=== PATIENT | female | born 1990 | race Caucasian/White ===

== ENCOUNTER 2016-02-17 22:28 | Emergency (ER) | payer OTHER ==
--- NOTE | 2016-02-17 23:31 | ED NURSING NOTES ---
Clinical Report - Nurses [facility] [address] [place] [address] 02/17/2016 22:29 [id number] TRI[facility] Triage time 23:05. Acuity: LEVEL 4. Chief Complaint: INJURY TO LEFT FOOT. 23:10. Alert. SEPSIS SCREEN: Sepsis Screen. Negative (no infection suspected/documented). LANNY COMA SCORE: Lanny Coma Scale: 15- eyes open spontaneously (4); best verbal response- oriented x 4 (5); best motor response- obeys commands (6). --23:10 Danilo Rodas R.N. 23:05 02/17/16. BP: 126/74. HR: 104. RR: 17. O2 saturation: 98%. Temp: 98.1 F (oral). Pain level now: 11/18. --23:10 Danilo Rodas R.N. Weight: 132.4 kg stated. Height/Length: 62 inches Per Patient. BMI: 53.4. --23:10 Danilo Rodas R.N. Medications Gabapentin Oral 300 mg, daily. --23:07 Danilo Rodas R.N. Medication/allergy information source: the patient. --23:10 Danilo Rodas R.N. Allergies Imitrex. Definite Moderate(rash) (Makes her head "feel tight") Penicillin. Definite Moderate(rash) (Makes her skin crack and bleed) --23:07 Danilo Rodas R.N. History Arrived by private vehicle. Historian: patient. Accompanied by friend. Primary physician (Tiffany). This occurred last night (about 1930). Occurred at home. ( Denies other injury). No neck pain or back pain. 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 PAST MEDICAL HX: Tetanus status: up-to-date. Immunizations: up-to-date. Last normal menstrual period- May 2015, Nexplanon. SOCIAL HX: Current every day heavy tobacco smoker- less than 1 pack per day. No alcohol use or drug use. No infectious disease exposure. ABUSE ASSESSMENT: No report of abuse. FALL RISK ASSESSMENT: Fall risk assessment completed. No fall risk identified. NUTRITIONAL RISK ASSESSMENT: The nutritional risk assessment revealed no deficiencies. FUNCTIONAL ASSESSMENT: Functional assessment: no impairments noted. LEARNING NEEDS ASSESSMENT: The learning needs assessment revealed no barriers. SKIN INTEGRITY ASSESSMENT: Skin integrity risk assessment completed. No skin integrity risk identified. --23:10 Danilo Rodas R.N. ( Patient reports slipping on ice, fell down about 8 steps and left foot bent under her). --23:11 Danilo Rodas R.N. PROBLEMS: Back Pain. Lumbar Strain. UTI - Urinary Tract Infection. --23:08 Danilo Rodas R.N. ADDITIONAL SURGERIES: Gallbladder Surgery. Tonsillectomy. --23:08 Danilo Rodas R.N. Interventions ID band on patient. To treatment room. --23:10 Danilo Rodas R.N. PHYSICAL ASSESSMENT 23:11. Ambulatory to room. GENERAL / NEURO / PSYCH: Oriented X 4. Alert. EXTREMITIES: Neuro-vascular status intact to the extremity. SKIN: Skin intact. Skin is warm and dry. --23:11 Danilo Rodas R.N. NURSING PROGRESS NOTES 23:11. Two patient identifiers checked. Call light placed in reach. Bed placed in lowest position. Brakes of bed on. Patient ready for evaluation- chart flagged. --23:11 Danilo Rodas R.N. 23:16 Portable x-ray left foot. --23:17 Danilo Rodas R.N. 23:43. The patient is calm and resting quietly. GENERAL / NEURO / PSYCH: Alert. Oriented X 4. RESPIRATORY: No respiratory distress. SKIN: Skin is warm and dry. --23:43 Danilo Rodas R.N. Ortho shoe applied to right foot by tech; distal pulses intact, sensation intact and motor function within normal limits. Patient fit with new crutches. Crutch training performed by Plasticell; the patient demonstrated proper use. --23:50 Florentin Neville 23:45 02/17/2016 Zofran ODT (Ondansetron) PO 4 mg given. Allergies verified and confirmed 5 rights. --23:51 Danilo Rodas R.N. 23:45 02/17/2016 Ibuprofen PO 600 mg given. Allergies verified and confirmed 5 rights. --23:52 Danilo Rodas R.N. DISPOSITION / DISCHARGE Condition at departure: stable. No learning barriers present. Discharge instructions provided and reviewed with the patient. Reviewed medication(s) side effects, precautions, dosing and course information. Prescription(s) given to the patient. Patient verbalized understanding. Written instructions provided in Ukrainian. The patient was discharged home and accompanied by poultry scientist. She left the Emergency Department ambulatory and via private vehicle. Full Roll Inspector driving. FALL RISK ASSESSMENT: Fall risk assessment completed. No fall risk identified. --23:43 Danilo Rodas R.N. 23:41 02/17/16. BP: 109/75. HR: 91. RR: 17. O2 saturation: 96% on room air. Pain level now: 07/19. --23:43 Danilo Rodas R.N. Departure time: 23:52. --23:47 Danilo Rodas R.N. Locked/Released at 02/17/2016 23:55 by Danilo Rodas R.N.
--- NOTE | 2016-02-17 23:31 | ED CLINICAL REPORT ---
Clinical Report - Physicians/Mid Levels [facility] [address] [place] [place] [address] 02/17/2016 22:29 Patient: JANELL WATTS Time Seen: 23:11. Arrived- By private vehicle. Historian- patient. HISTORY OF PRESENT ILLNESS Chief Complaint: Injury to the left foot. The injury happened last night about 29 hours ago. Occurred at home. Fell while walking; slipped (Patient reports slipping on ice, fell down about 8 steps and left foot bent under her). Patient is experiencing moderate pain. Patient denies injury to the head or neck. No other injury. REVIEW OF SYSTEMS The patient complains of pain on weight bearing. She has had swelling. No tingling, weakness, numbness, suspected foreign body or skin laceration. All systems otherwise negative, except as recorded above. PAST HISTORY Primary physician (Tiffany) PROBLEMS: Back Pain. Lumbar Strain. UTI - Urinary Tract Infection. Obesity. SURGERIES: Gallbladder Surgery. Tonsillectomy. Medications: Gabapentin Oral 300 mg, daily. Allergies: Imitrex. Definite Moderate(rash) (Makes her head "feel tight") Penicillin. Definite Moderate(rash) (Makes her skin crack and bleed). SOCIAL HISTORY Smoker- current status unknown. No alcohol use or drug use. ADDITIONAL NOTES The nursing notes have been reviewed. PHYSICAL EXAM Vital Signs: 02/17/2016 23:05 BP: 126/74. HR: 104. RR: 17. O2 saturation: 98%. Temp: 98.1 F. Pain level now: 11/18. Appearance: Alert. Oriented X3. Patient in mild distress. Head: Head atraumatic. Eyes: Eyes normal inspection. No scleral icterus or pale conjunctivae. ENT: Nose normal. Neck: Normal inspection. Neck supple. C-spine non-tender. CVS: Normal heart rate and rhythm. Heart sounds normal. Pulses normal. Respiratory: No respiratory distress. Breath sounds normal. Chest nontender. Abdomen: No visible injury. Soft and nontender. Severely obese. Back: Normal inspection. No tenderness. No vertebral point tenderness. Skin: Skin intact. Skin warm and dry. Extremities: Right knee. No tenderness or swelling. Right ankle. No tenderness or swelling. Right foot: moderate tenderness and mild swelling located in the dorsal and plantar lateral aspect of the mid foot. Neurovascular intact distally. No erythema, laceration, abrasion, ecchymosis or puncture wound. No foreign body or deformity. No ankle injury. Foot and ankle exam otherwise negative. Extremities otherwise negative. Neuro, Vascular and Tendons: Vascular status intact. Sensation intact. Motor intact. Tendon function intact. Gait: Limping gait. Neuro: Oriented X 3. No motor deficit. No sensory deficit. LABS, X-RAYS, AND EKG Lt Foot X-ray: No fracture. Normal alignment. No bony lesion or air in the soft tissue. Soft tissues normal. Joint spaces normal. Views: AP, lateral and oblique. Technique: good. The X-rays were interpreted contemporaneously by me. PROGRESS AND PROCEDURES Course of Care: Ibuprofen 600 mg PO given. Zofran 4 mg ODT PO given. No evident fx now. Patient/family counseled. Old ED records reviewed. Disposition: Discharged. Condition: stable and improved. CLINICAL IMPRESSION Sprain of the tarsometatarsal ligaments of the left foot. Morbid obesity (BMI >=40) due to excess calories. Fall on same level by slipping. INSTRUCTIONS Apply ice. Use crutches until better. Elevate affected areas above chest level. Wear stiff soled shoe until released. No weight bearing left leg for three days. Warnings: GENERAL WARNINGS: Return or contact your physician immediately if your condition worsens or changes unexpectedly, if not improving as expected, or if other problems arise. Prescription Medications: Ibuprofen 600mg tablets: take 1 tablet orally every 8 hours as needed for pain. Dispense thirty (30). No refills. OTC Medications: Acetaminophen (available over the counter): take according to label instructions. Motrin (available over the counter): take according to label instructions. Follow-up: Follow up with your doctor in about three days. Follow-up with: Desmond Seals DPM, Podiatry, , [address], [place], [address] Follow up in about three days. (Electronically signed by Pawan Moreno DO 02/18/2016 5:36)
--- NOTE | 2016-02-17 23:31 | ED CLINICAL REPORT ---
Clinical Report - Physicians/Mid Levels [facility] [address] [place] [address] 02/17/2016 22:29 Patient: JANELL WATTS Time Seen: 23:11. Arrived- By private vehicle. Historian- patient. HISTORY OF PRESENT ILLNESS Chief Complaint: Injury to the left foot. The injury happened last night about 29 hours ago. Occurred at home. Fell while walking; slipped (Patient reports slipping on ice, fell down about 8 steps and left foot bent under her). Patient is experiencing moderate pain. Patient denies injury to the head or neck. No other injury. REVIEW OF SYSTEMS The patient complains of pain on weight bearing. She has had swelling. No tingling, weakness, numbness, suspected foreign body or skin laceration. All systems otherwise negative, except as recorded above. PAST HISTORY Primary physician (Tiffany) PROBLEMS: Back Pain. Lumbar Strain. UTI - Urinary Tract Infection. Obesity. SURGERIES: Gallbladder Surgery. Tonsillectomy. Medications: Gabapentin Oral 300 mg, daily. Allergies: Imitrex. Definite Moderate(rash) (Makes her head "feel tight") Penicillin. Definite Moderate(rash) (Makes her skin crack and bleed). SOCIAL HISTORY Smoker- current status unknown. No alcohol use or drug use. ADDITIONAL NOTES The nursing notes have been reviewed. PHYSICAL EXAM Vital Signs: 02/17/2016 23:05 BP: 126/74. HR: 104. RR: 17. O2 saturation: 98%. Temp: 98.1 F. Pain level now: 11/18. Appearance: Alert. Oriented X3. Patient in mild distress. Head: Head atraumatic. Eyes: Eyes normal inspection. No scleral icterus or pale conjunctivae. ENT: Nose normal. Neck: Normal inspection. Neck supple. C-spine non-tender. CVS: Normal heart rate and rhythm. Heart sounds normal. Pulses normal. Respiratory: No respiratory distress. Breath sounds normal. Chest nontender. Abdomen: No visible injury. Soft and nontender. Severely obese. Back: Normal inspection. No tenderness. No vertebral point tenderness. Skin: Skin intact. Skin warm and dry. Extremities: Right knee. No tenderness or swelling. Right ankle. No tenderness or swelling. Right foot: moderate tenderness and mild swelling located in the dorsal and plantar lateral aspect of the mid foot. Neurovascular intact distally. No erythema, laceration, abrasion, ecchymosis or puncture wound. No foreign body or deformity. No ankle injury. Foot and ankle exam otherwise negative. Extremities otherwise negative. Neuro, Vascular and Tendons: Vascular status intact. Sensation intact. Motor intact. Tendon function intact. Gait: Limping gait. Neuro: Oriented X 3. No motor deficit. No sensory deficit. LABS, X-RAYS, AND EKG Lt Foot X-ray: No fracture. Normal alignment. No bony lesion or air in the soft tissue. Soft tissues normal. Joint spaces normal. Views: AP, lateral and oblique. Technique: good. The X-rays were interpreted contemporaneously by me. PROGRESS AND PROCEDURES Course of Care: Ibuprofen 600 mg PO given. Zofran 4 mg ODT PO given. No evident fx now. Patient/family counseled. Old ED records reviewed. Disposition: Discharged. Condition: stable and improved. CLINICAL IMPRESSION Sprain of the tarsometatarsal ligaments of the left foot. Morbid obesity (BMI >=40) due to excess calories. Fall on same level by slipping. INSTRUCTIONS Apply ice. Use crutches until better. Elevate affected areas above chest level. Wear stiff soled shoe until released. No weight bearing left leg for three days. Warnings: GENERAL WARNINGS: Return or contact your physician immediately if your condition worsens or changes unexpectedly, if not improving as expected, or if other problems arise. Prescription Medications: Ibuprofen 600mg tablets: take 1 tablet orally every 8 hours as needed for pain. Dispense thirty (30). No refills. OTC Medications: Acetaminophen (available over the counter): take according to label instructions. Motrin (available over the counter): take according to label instructions. Follow-up: Follow up with your doctor in about three days. Follow-up with: Desmond Seals DPM, Podiatry, , [address] [facility], [place], [address] Follow up in about three days. (Electronically signed by Pawan Moreno DO 02/18/2016 5:36)
--- NOTE | 2016-02-17 23:31 | ED ORDER SUMMARY ---
..... Patient: JANELL WATTS OrderSheet [facility] VisitID: [id number] [place] [address] 25y, F Registration Date/Time: 02/17/2016 ORDER SHEET Weight: 132.4 kg (stated) Allergies: Imitrex, Penicillin GENERAL ORDERS: Foot 3V Left Urgent (23:12 02/17/2016 JQuivey R.N. per protocol) (Ack 23:17 [facility] Poultry Scalder) (23:19 RFay) Splint (LE) (Left) (cast shoe) (23:28 02/17/2016 [facility] DO) (23:52 JQuivey R.N.) [facility]ches (23:28 [facility]) (23:52 JQuivey R.N.) MEDICATION ORDERS: Ibuprofen PO 600 mg (NOW) (23:30 02/17/2016 [facility]) (Ack 23:35 JQuivey R.N.) (23:52 JQuivey R.N.) Zofran ODT PO 4 mg (NOW) (23:30 02/17/2016 [facility]) (Ack 23:35 JQuivey R.N.) (23:51 JQuivey R.N.) IV FLUIDS: ORDER SHEET NOTES: [Electronically signed by Danilo Rodas R.N. (23:55 02/17/2016)] [Electronically signed by Pawan Moreno DO (05:36 02/18/2016)] [Electronically locked/signed by Danilo Rodas R.N. (23:55 02/17/2016)]
--- NOTE | 2016-02-17 23:31 | ED ORDER SUMMARY ---
..... Patient: JANELL WATTS OrderSheet [facility] VisitID: [id number] [place] [address] 25y, F Registration Date/Time: 02/17/2016 ORDER SHEET Weight: 132.4 kg (stated) Allergies: Imitrex, Penicillin GENERAL ORDERS: Foot 3V Left Urgent (23:12 02/17/2016 JQuivey R.N. per protocol) (Ack 23:17 [facility] [employer]) (23:19 RFay) Splint (LE) (Left) (cast shoe) (23:28 02/17/2016 [facility] DO) (23:52 JQuivey R.N.) Crutches (23:28 [facility]17/2016 [facility]) (23:52 JQuivey R.N.) MEDICATION ORDERS: Ibuprofen PO 600 mg (NOW) (23:30 02/17/2016 [facility]) (Ack 23:35 JQuivey R.N.) (23:52 JQuivey R.N.) Zofran ODT PO 4 mg (NOW) (23:30 02/17/2016 [facility]) (Ack 23:35 JQuivey R.N.) (23:51 JQuivey R.N.) IV FLUIDS: ORDER SHEET NOTES: [Electronically signed by Danilo Rodas R.N. (23:55 02/17/2016)] [Electronically signed by Pawan Moreno DO (05:36 02/18/2016)] [Electronically locked/signed by Danilo Rodas R.N. (23:55 02/17/2016)]
--- NOTE | 2016-02-17 23:31 | ED NURSING NOTES ---
Clinical Report - Nurses [facility] [address] [place] [address] 02/17/2016 22:29 [id number] Triage time 23:05. Acuity: LEVEL 4. Chief Complaint: INJURY TO LEFT FOOT. 23:10. Alert. SEPSIS SCREEN: Sepsis Screen. Negative (no infection suspected/documented). LANNY COMA SCORE: Lanny Coma Scale: 15- eyes open spontaneously (4); best verbal response- oriented x 4 (5); best motor response- obeys commands (6). --23:10 Danilo Rodas R.N. 23:05 02/17/16. BP: 126/74. HR: 104. RR: 17. O2 saturation: 98%. Temp: 98.1 F (oral). Pain level now: 11/18. --23:10 Danilo Rodas R.N. Weight: 132.4 kg stated. Height/Length: 62 inches Per Patient. BMI: 53.4. --23:10 Danilo Rodas R.N. Medications Gabapentin Oral 300 mg, daily. --23:07 Danilo Rodas R.N. Medication/allergy information source: the patient. --23:10 Danilo Rodas R.N. Allergies Imitrex. Definite Moderate(rash) (Makes her head "feel tight") Penicillin. Definite Moderate(rash) (Makes her skin crack and bleed) --23:07 Danilo Rodas R.N. History Arrived by private vehicle. Historian: patient. Accompanied by friend. Primary physician (Tiffany). This occurred last night (about 1930). Occurred at home. ( Denies other injury). No neck pain or back pain. 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 PAST MEDICAL HX: Tetanus status: up-to-date. Immunizations: up-to-date. Last normal menstrual period- May 2015, Nexplanon. SOCIAL HX: Current every day heavy tobacco smoker- less than 1 pack per day. No alcohol use or drug use. No infectious disease exposure. ABUSE ASSESSMENT: No report of abuse. FALL RISK ASSESSMENT: Fall risk assessment completed. No fall risk identified. NUTRITIONAL RISK ASSESSMENT: The nutritional risk assessment revealed no deficiencies. FUNCTIONAL ASSESSMENT: Functional assessment: no impairments noted. LEARNING NEEDS ASSESSMENT: The learning needs assessment revealed no barriers. SKIN INTEGRITY ASSESSMENT: Skin integrity risk assessment completed. No skin integrity risk identified. --23:10 Danilo Rodas R.N. ( Patient reports slipping on ice, fell down about 8 steps and left foot bent under her). --23:11 Danilo Rodas R.N. PROBLEMS: Back Pain. Lumbar Strain. UTI - Urinary Tract Infection. --23:08 Danilo Rodas R.N. ADDITIONAL SURGERIES: Gallbladder Surgery. Tonsillectomy. --23:08 Danilo Rodas R.N. Interventions ID band on patient. To treatment room. --23:10 Danilo Rodas R.N. PHYSICAL ASSESSMENT 23:11. Ambulatory to room. GENERAL / NEURO / PSYCH: Oriented X 4. Alert. EXTREMITIES: Neuro-vascular status intact to the extremity. SKIN: Skin intact. Skin is warm and dry. --23:11 Danilo Rodas R.N. NURSING PROGRESS NOTES 23:11. Two patient identifiers checked. Call light placed in reach. Bed placed in lowest position. Brakes of bed on. Patient ready for evaluation- chart flagged. --23:11 Danilo Rodas R.N. 23:16 Portable x-ray left foot. --23:17 Danilo Rodas R.N. 23:43. The patient is calm and resting quietly. GENERAL / NEURO / PSYCH: Alert. Oriented X 4. RESPIRATORY: No respiratory distress. SKIN: Skin is warm and dry. --23:43 Danilo Rodas R.N. Ortho shoe applied to right foot by tech; distal pulses intact, sensation intact and motor function within normal limits. Patient fit with new crutches. Crutch training performed by Avaak; the patient demonstrated proper use. --23:50 Florentin Neville 23:45 02/17/2016 Zofran ODT (Ondansetron) PO 4 mg given. Allergies verified and confirmed 5 rights. --23:51 Danilo Rodas R.N. 23:45 02/17/2016 Ibuprofen PO 600 mg given. Allergies verified and confirmed 5 rights. --23:52 Danilo Rodas R.N. DISPOSITION / DISCHARGE Condition at departure: stable. No learning barriers present. Discharge instructions provided and reviewed with the patient. Reviewed medication(s) side effects, precautions, dosing and course information. Prescription(s) given to the patient. Patient verbalized understanding. Written instructions provided in Turkmen. The patient was discharged home and accompanied by band saw filer. She left the Emergency Department ambulatory and via private vehicle. Director Distribution driving. FALL RISK ASSESSMENT: Fall risk assessment completed. No fall risk identified. --23:43 Danilo Rodas R.N. 23:41 02/17/16. BP: 109/75. HR: 91. RR: 17. O2 saturation: 96% on room air. Pain level now: 07/19. --23:43 Danilo Rodas R.N. Departure time: 23:52. --23:47 Danilo Rodas R.N. Locked/Released at 02/17/2016 23:55 by Danilo Roads R.N.
--- NOTE | 2016-02-17 23:48 | DIAGNOSTIC IMAGING REPORT ---
PROCEDURE: XR FOOT 3 VIEWS - LEFT INDICATION: TRAUMA/INJURY TECHNIQUE: Three views. COMPARISON: None. FINDINGS: Soft tissue swelling of the dorsum of the left foot. Osseous structures and joint spaces are normal. Small plantar spur left os calcis (incidental finding) IMPRESSION: 1. Soft tissue swelling. 2. Otherwise negative left foot.
--- NOTE | 2016-02-18 05:37 | ED MAR SUMMARY ---
..... Medication Administration Record [facility] [address] [place] [address] Patient: JANELL WATTS Visit ID: [id number] 25y, F Weight: 132.4 kg Height/Length: 62 in BMI: 53.4 ALLERGIES: Imitrex, Penicillin Given 23:45 02/17/2016 Danilo Rodas, R.N. Medication Administered: IBUPROFEN [PO], Dose: 600 mg PO. Medication Ordered: Ibuprofen PO 600 mg (NOW). Given 23:45 02/17/2016 Danilo Rodas, R.N. Medication Administered: ZOFRAN ODT [PO] (ONDANSETRON), Dose: 4 mg PO. Medication Ordered: Zofran ODT PO 4 mg (NOW).
--- NOTE | 2016-02-18 05:37 | ED MED RECONCILIATION SUMMARY ---
Patient: JANELL WATTS Medication Reconciliation Report [facility] VisitID: [id number] [address] [place] [address] 25y, F Registration Date/Time: 02/17/2016 Weight: 132.4 kg Height/Length: 62 in. BMI: 53.4 ALLERGIES: Imitrex, Penicillin The patient's Home Medications are listed below: THE FOLLOWING MEDICATIONS NEED TO BE RECONCILED: Gabapentin Oral 300 mg, daily The source(s) of the original Home Medication information: patient The following Medications were given to the patient in the Emergency Department: Zofran ODT [PO] PO 4 mg, administered: 02/17/2016 11:45:00 PM Ibuprofen [PO] PO 600 mg, administered: 02/17/2016 11:45:00 PM The following Medications were prescribed to the patient: Acetaminophen (available over the counter): take according to label instructions. -- Pawan Moreno DO Motrin (available over the counter): take according to label instructions. -- Pawan Moreno DO Ibuprofen 600mg tablets: take 1 tablet orally every 8 hours as needed for pain. Dispense thirty (30). No refills. -- Pawan Moreno DO
--- NOTE | 2016-02-18 05:37 | ED MED RECONCILIATION SUMMARY ---
Patient: JANELL WATTS Medication Reconciliation Report [facility] VisitID: [id number] [address] [place] [address] 25y, F Registration Date/Time: 02/17/2016 Weight: 132.4 kg Height/Length: 62 in. BMI: 53.4 ALLERGIES: Imitrex, Penicillin The patient's Home Medications are listed below: THE FOLLOWING MEDICATIONS NEED TO BE RECONCILED: Gabapentin Oral 300 mg, daily The source(s) of the original Home Medication information: patient The following Medications were given to the patient in the Emergency Department: Zofran ODT [PO] PO 4 mg, administered: 02/17/2016 11:45:00 PM Ibuprofen [PO] PO 600 mg, administered: 02/17/2016 11:45:00 PM The following Medications were prescribed to the patient: Acetaminophen (available over the counter): take according to label instructions. -- Pawan Moreno DO Motrin (available over the counter): take according to label instructions. -- Pawan Moreno DO Ibuprofen 600mg tablets: take 1 tablet orally every 8 hours as needed for pain. Dispense thirty (30). No refills. -- Pawan Moreno DO
--- NOTE | 2016-02-18 05:37 | ED DISCHARGE INSTRUCTIONS ---
Patient: JANELL WATTS General Instructions [facility] VisitID: [id number] [place] [address] 25y, F Registration Date/Time: 02/17/2016 Sprain of the tarsometatarsal ligaments of the left foot. Morbid obesity (BMI >=40) due to excess calories. Fall on same level by slipping. INSTRUCTIONS Apply ice. Use crutches until better. Elevate affected areas above chest level. Wear stiff soled shoe until released. No weight bearing left leg for three days. Warnings: GENERAL WARNINGS: Return or contact your physician immediately if your condition worsens or changes unexpectedly, if not improving as expected, or if other problems arise. Prescription Medications: Ibuprofen 600mg tablets: take 1 tablet orally every 8 hours as needed for pain. Dispense thirty (30). No refills. OTC Medications: Acetaminophen (available over the counter): take according to label instructions. Motrin (available over the counter): take according to label instructions. Follow-up: Follow up with your doctor in about three days. Follow-up with: Desmond Seals DPM, Podiatry, , [address], [place], [address] Follow up in about three days. ADDITIONAL INFORMATION Mechanical Fall You have had a fall today. It appears that the cause is mechanical. That means that you slipped, tripped or lost your balance. If your fall had been due to fainting or a seizure, further tests would be required. Home Care: Rest today and resume your normal activities when you are feeling back to normal. If you were injured during the fall, follow the advice from your doctor regarding care of your injury. You may use acetaminophen (Tylenol) or ibuprofen (Motrin, Advil) to control pain, unless another pain medicine was prescribed. [NOTE: If you have chronic liver or kidney disease or ever had a stomach ulcer or GI bleeding, talk with your doctor before using these medicines.] Fall Prevention: Was there anything that caused your fall that can be fixed, removed, or replaced? Make your home safe by keeping walkways clear of objects you may trip over. Use non-slip pads under rugs. Do not walk in poorly lit areas. Do not stand on chairs or wobbly ladders. Use caution when reaching overhead or looking upward. This position can cause a loss of balance. Be sure your shoes fit properly, have non-slip bottoms and are in good condition. Be cautious when going up and down curbs, and walking on uneven sidewalks. If your balance is poor, consider using a cane or walker. Stay as active as you can. Balance, flexibility, strength, and endurance all come from exercise. They all play a role in preventing falls. Follow Up with your doctor or as advised by our staff. Get Prompt Medical Attention if any of the following occur: Repeated mechanical falls, or unexplained falls Dizziness, fainting or seizure Severe headache Chest pain or shortness of breath Palpitations (very rapid or very slow or irregular heartbeat) Blood in vomit, stools (black or red color) Weakness of an arm or leg or one side of the face Difficulty with speech or vision Sprain, Foot A sprain is a stretching or tearing of the ligaments that hold a joint together. There are no broken bones. Sprains take from 36 weeks to heal. A sprain may be treated with a splint, walking cast or special boot. Mild sprains may not require any additional support. Home care The following guidelines will help you care for your injury at home: Keep your leg elevated when sitting or lying down. This is very important during the first 48 hours to reduce swelling. Stay off the injured foot as much as possible until you can walk on it without pain. If needed, you may use crutches during the first week for this purpose. (Crutches can be rented at many pharmacies or surgical/orthopedic supply stores). You may be given a cast shoe to wear to prevent movement in your foot. If not, you can use a sandal or any shoe that does not put pressure on the injured area until the swelling and pain go away. If using a sandal, be careful not to strike your foot against anything, since another injury could make the sprain worse. Apply an ice pack (ice cubes in a plastic bag, wrapped in a towel) over the injured area for 20 minutes every 12 hours the first day. You should continue with ice packs 34 times a day for the next two days. Continue the use of ice packs for relief of pain and swelling as needed. You may use acetaminophen or ibuprofen to control pain, unless another medicine was prescribed. If you have chronic liver or kidney disease or ever had a stomach ulcer or GI bleeding, talk with your doctor before using these medicines. If you were given a splint or cast, keep it dry. Bathe with your splint/cast well out of the water, protected with a large plastic bag, rubber-banded at the top end. If a fiberglass splint or cast gets wet, you can dry it with a hair-dryer. You may return to sports after healing, when you can run without pain. Follow-up care Follow up with your doctor as directed. Any X-rays you had today dont show any broken bones, breaks, or fractures. Sometimes fractures dont show up on the first X-ray. Bruises and sprains can sometimes hurt as much as a fracture. These injuries can take time to heal completely. If your symptoms dont improve or they get worse, talk with your doctor. You may need a repeat X-ray. When to seek medical care Get prompt medical attention if any of the following occur: The plaster cast or splint gets wet or soft The fiberglass cast or splint gets wet and does not dry for 24 hours Pain or swelling increases, or redness appears Toes become cold, blue, numb, or tingly Crutch Walking Crutch Adjustment Make sure the crutches you use are adjusted to fit you. When you stand, there should be room to fit 2-3 fingers between the top of the crutch and your armpit. Your elbow should be slightly bent when holding the hand edi developer. Crutch Walking: Place the crutches forward 12" in front of and 6" to the side of your feet. Lean your weight forward as you push down on the handgrips. Your weight should be on your hands and yourstrong leg, not your armpits . Let your body swing through, landing on the strong leg. Advance the crutches forward again. The crutch and the injured leg should move together. Going Up Steps: ("Up with the good") With both crutches on the same step as your feet, push down on the handgrips. Balancing with very light pressure on the weak leg, let your hands support your weight as you raise your strong leg onto the next higher step. Transfer all your weight to your strong leg (still bent) as you move the crutches up to the next step alongside the strong leg. With your weight evenly balanced on the two crutches and your strong leg, straighten your strong knee as you raise the weak leg up to the next step. Going Down Steps: ("Down with the bad") With both crutches on the same step as your feet, push down on the handgrips. With your weight evenly balanced on the two crutches and your strong leg, bend your strong knee as you lower the weak leg down to the next step. Let your strong leg support you (still bent) as you move the crutches down alongside the weak leg. Transfer your weight to your hands, balancing with very light pressure on the weak leg as you lower your strong leg alongside your weak leg. Ibuprofen Oral tablet What is this medicine? IBUPROFEN (eye BYOO proe fen) is a non-steroidal anti-inflammatory drug (NSAID). It is used for dental pain, fever, headaches or migraines, osteoarthritis, rheumatoid arthritis, or painful monthly periods. It can also relieve minor aches and pains caused by a cold, flu, or sore throat. How should I use this medicine? Take this medicine by mouth with a glass of water. Follow the directions on the prescription label. Take this medicine with food if your stomach gets upset. Try to not lie down for at least 10 minutes after you take the medicine. Take your medicine at regular intervals. Do not take your medicine more often than directed. A special MedGuide will be given to you by the pharmacist with each prescription and refill. Be sure to read this information carefully each time. Talk to your dependency case manager regarding the use of this medicine in children. Special care may be needed. What side effects may I notice from receiving this medicine? Side effects that you should report to your doctor or health ocular care technologist as soon as possible: allergic reactions like skin rash, itching or hives, swelling of the face, lips, or tongue black or bloody stools, blood in the urine or in vomit breathing problems changes in vision chest pain general ill feeling or flu-like symptoms nausea or vomiting redness, blistering, peeling or loosening of the skin, including inside the mouth slurred speech or weakness on one side of the body stomach pain unexplained weight gain or swelling unusually weak or tired yellowing of eyes or skin Side effects that usually do not require medical attention (report to your doctor or health ocular care technologist if they continue or are bothersome): constipation or diarrhea dizziness gas or heartburn stomach upset What may interact with this medicine? Do not take this medicine with any of the following medications: cidofovir ketorolac methotrexate pemetrexed This medicine may also interact with the following medications: alcohol aspirin diuretics lithium other drugs for inflammation like prednisone warfarin What if I miss a dose? If you miss a dose, take it as soon as you can. If it is almost time for your next dose, take only that dose. Do not take double or extra doses. Where should I keep my medicine? Keep out of the reach of children. Store at room temperature between 15 and 30 degrees C (59 and 86 degrees F). Keep container tightly closed. Throw away any unused medicine after the expiration date. What should I tell my health care provider before I take this medicine? They need to know if you have any of these conditions: asthma cigarette smoker drink more than 3 alcohol containing drinks a day heart disease or circulation problems such as heart failure or leg edema (fluid retention) high blood pressure kidney disease liver disease stomach bleeding or ulcers an unusual or allergic reaction to ibuprofen, aspirin, other NSAIDS, other medicines, foods, dyes, or preservatives or trying to get breast-feeding What should I watch for while using this medicine? Tell your doctor or healthcare professional if your symptoms do not start to get better or if they get worse. This medicine does not prevent heart attack or stroke. In fact, this medicine may increase the chance of a heart attack or stroke. The chance may increase with longer use of this medicine and in people who have heart disease. If you take aspirin to prevent heart attack or stroke, talk with your doctor or health ocular care technologist. Do not take other medicines that contain aspirin, ibuprofen, or naproxen with this medicine. Side effects such as stomach upset, nausea, or ulcers may be more likely to occur. Many medicines available without a prescription should not be taken with this medicine. This medicine can cause ulcers and bleeding in the stomach and intestines at any time during treatment. Ulcers and bleeding can happen without warning symptoms and can cause . To reduce your risk, do not smoke cigarettes or drink alcohol while you are taking this medicine. You may get drowsy or dizzy. Do not drive, use machinery, or do anything that needs mental alertness until you know how this medicine affects you. Do not stand or sit up quickly, especially if you are an older patient. This reduces the risk of dizzy or fainting spells. This medicine can cause you to bleed more easily. Try to avoid damage to your teeth and gums when you brush or floss your teeth. Acetaminophen Oral tablet What is this medicine? ACETAMINOPHEN (a set a AMANDA trudy fen) is a pain reliever. It is used to treat mild pain and fever. How should I use this medicine? Take this medicine by mouth with a glass of water. Follow the directions on the package or prescription label. Take your medicine at regular intervals. Do not take your medicine more often than directed. Talk to your dependency case manager regarding the use of this medicine in children. While this drug may be prescribed for children as young as 6 years of age for selected conditions, precautions do apply. What side effects may I notice from receiving this medicine? Side effects that you should report to your doctor or health ocular care technologist as soon as possible: allergic reactions like skin rash, itching or hives, swelling of the face, lips, or tongue breathing problems fever or sore throat redness, blistering, peeling or loosening of the skin, including inside the mouth trouble passing urine or change in the amount of urine unusual bleeding or bruising unusually weak or tired yellowing of the eyes or skin Side effects that usually do not require medical attention (report to your doctor or health ocular care technologist if they continue or are bothersome): headache nausea, stomach upset What may interact with this medicine? alcohol imatinib isoniazid other medicines with acetaminophen What if I miss a dose? If you miss a dose, take it as soon as you can. If it is almost time for your next dose, take only that dose. Do not take double or extra doses. Where should I keep my medicine? Keep out of reach of children. Store at room temperature between 20 and 25 degrees C (68 and 77 degrees F). Protect from moisture and heat. Throw away any unused medicine after the expiration date. What should I tell my health care provider before I take this medicine? They need to know if you have any of these conditions: if you frequently drink alcohol containing drinks liver disease an unusual or allergic reaction to acetaminophen, other medicines, foods, dyes or preservatives or trying to get breast-feeding What should I watch for while using this medicine? Tell your doctor or health ocular care technologist if the pain lasts more than 10 days (5 days for children), if it gets worse, or if there is a new or different kind of pain. Also, check with your doctor if a fever lasts for more than 3 days. Do not take other medicines that contain acetaminophen with this medicine. Always read labels carefully. If you have questions, ask your doctor or pharmacist. If you take too much acetaminophen get medical help right away. Too much acetaminophen can be very dangerous and cause liver damage. Even if you do not have symptoms, it is important to get help right away. Ibuprofen Oral tablet What is this medicine? IBUPROFEN (eye BYOO proe fen) is a non-steroidal anti-inflammatory drug (NSAID). It is used for dental pain, fever, headaches or migraines, osteoarthritis, rheumatoid arthritis, or painful monthly periods. It can also relieve minor aches and pains caused by a cold, flu, or sore throat. How should I use this medicine? Take this medicine by mouth with a glass of water. Follow the directions on the prescription label. Take this medicine with food if your stomach gets upset. Try to not lie down for at least 10 minutes after you take the medicine. Take your medicine at regular intervals. Do not take your medicine more often than directed. A special MedGuide will be given to you by the pharmacist with each prescription and refill. Be sure to read this information carefully each time. Talk to your dependency case manager regarding the use of this medicine in children. Special care may be needed. What side effects may I notice from receiving this medicine? Side effects that you should report to your doctor or health ocular care technologist as soon as possible: allergic reactions like skin rash, itching or hives, swelling of the face, lips, or tongue black or bloody stools, blood in the urine or in vomit breathing problems changes in vision chest pain general ill feeling or flu-like symptoms nausea or vomiting redness, blistering, peeling or loosening of the skin, including inside the mouth slurred speech or weakness on one side of the body stomach pain unexplained weight gain or swelling unusually weak or tired yellowing of eyes or skin Side effects that usually do not require medical attention (report to your doctor or health ocular care technologist if they continue or are bothersome): constipation or diarrhea dizziness gas or heartburn stomach upset What may interact with this medicine? Do not take this medicine with any of the following medications: cidofovir ketorolac methotrexate pemetrexed This medicine may also interact with the following medications: alcohol aspirin diuretics lithium other drugs for inflammation like prednisone warfarin What if I miss a dose? If you miss a dose, take it as soon as you can. If it is almost time for your next dose, take only that dose. Do not take double or extra doses. Where should I keep my medicine? Keep out of the reach of children. Store at room temperature between 15 and 30 degrees C (59 and 86 degrees F). Keep container tightly closed. Throw away any unused medicine after the expiration date. What should I tell my health care provider before I take this medicine? They need to know if you have any of these conditions: asthma cigarette smoker drink more than 3 alcohol containing drinks a day heart disease or circulation problems such as heart failure or leg edema (fluid retention) high blood pressure kidney disease liver disease stomach bleeding or ulcers an unusual or allergic reaction to ibuprofen, aspirin, other NSAIDS, other medicines, foods, dyes, or preservatives or trying to get breast-feeding What should I watch for while using this medicine? Tell your doctor or healthcare professional if your symptoms do not start to get better or if they get worse. This medicine does not prevent heart attack or stroke. In fact, this medicine may increase the chance of a heart attack or stroke. The chance may increase with longer use of this medicine and in people who have heart disease. If you take aspirin to prevent heart attack or stroke, talk with your doctor or health ocular care technologist. Do not take other medicines that contain aspirin, ibuprofen, or naproxen with this medicine. Side effects such as stomach upset, nausea, or ulcers may be more likely to occur. Many medicines available without a prescription should not be taken with this medicine. This medicine can cause ulcers and bleeding in the stomach and intestines at any time during treatment. Ulcers and bleeding can happen without warning symptoms and can cause . To reduce your risk, do not smoke cigarettes or drink alcohol while you are taking this medicine. You may get drowsy or dizzy. Do not drive, use machinery, or do anything that needs mental alertness until you know how this medicine affects you. Do not stand or sit up quickly, especially if you are an older patient. This reduces the risk of dizzy or fainting spells. This medicine can cause you to bleed more easily. Try to avoid damage to your teeth and gums when you brush or floss your teeth. You have been given the following additional information: Fall, Mechanical Sprain, Foot Crutch Walking Ibuprofen Oral tablet Acetaminophen Oral tablet Ibuprofen Oral tablet No weight bearing left leg for three days. (Electronically signed by Pawan Moreno DO 02/18/2016 5:36)
--- NOTE | 2016-02-18 05:37 | ED MAR SUMMARY ---
..... Medication Administration Record [facility] [address] [place] [address] Patient: JANELL WATTS Visit ID: [id number] 25y, F Weight: 132.4 kg Height/Length: 62 in BMI: 53.4 ALLERGIES: Imitrex, Penicillin Given 23:45 02/17/2016 Danilo Rodas, R.N. Medication Administered: IBUPROFEN [PO], Dose: 600 mg PO. Medication Ordered: Ibuprofen PO 600 mg (NOW). Given 23:45 02/17/2016 Danilo Rodas, R.N. Medication Administered: ZOFRAN ODT [PO] (ONDANSETRON), Dose: 4 mg PO. Medication Ordered: Zofran ODT PO 4 mg (NOW).
== END 2016-02-17 23:52 | disposition home or self-care (01) ==
LOC: ED SRH 22:28
DX: S93.622A Sprain of tarsometatarsal ligament of left foot, initial encounter (principal); Z88.8 Allergy status to other drugs, medicaments and biological substances; E66.01 Morbid (severe) obesity due to excess calories; Z68.41 Body mass index [BMI] 40.0-44.9, adult; W00.0XXA Fall on same level due to ice and snow, initial encounter; Y93.01 Activity, walking, marching and hiking; Y92.009 Unspecified place in unspecified non-institutional (private) residence as the place of occurrence of the external cause; Y99.8 Other external cause status; Z79.899 Other long term (current) drug therapy; Z88.0 Allergy status to penicillin